=== PATIENT | male | born 1970 | race Native Hawaiian/Other Pacific Islander ===

== ENCOUNTER 2020-07-12 12:08 | Observation (INO) | payer OTHER ==
[~2020-07-12] VITALS: Ht 180.3 cm; Wt 99.4 kg
[2020-07-12 12:13] VITALS: BP 156/92; TEMP 97.9
[2020-07-12 12:30] VITALS: BP 159/94
[2020-07-12 12:49] LABS: PLATELET COUNT 227 K/uL (142-355)
[2020-07-12 12:56] LABS: POTASSIUM 3.7 mmol/L (3.6-5.2); SODIUM 135 mmol/L (136-145)
[2020-07-12 13:00] VITALS: BP 131/86
[2020-07-12 13:30] VITALS: BP 132/77
[2020-07-12 15:50] VITALS: BP 132/85; TEMP 97.7; Ht 180.3 cm; Wt 99.4 kg
[2020-07-12 20:00] VITALS: BP 123/71; TEMP 98.4
[2020-07-13] VITALS: BP 132/70; TEMP 98
[2020-07-13 04:04] VITALS: BP 117/72; TEMP 97.6
[2020-07-13 05:40] LABS: PLATELET COUNT 218 K/uL (142-355)
[2020-07-13 06:19] LABS: POTASSIUM 4.2 mmol/L (3.6-5.2)
[2020-07-13 08:00] VITALS: BP 133/79; TEMP 97
[2020-07-13] MEDS ORDERED: LEVOFLOXACIN750 MG PO (11:44)
--- NOTE | 2020-07-13 12:11 | NUR ---
IV DC TIP INTACT. PT GIVEN RX FOR LEVAQUIN 750 MG DAILY X 7 DAYS. PT GIVEN GOOD RX COUPON. PT INSTRUCTED TO F/U WITH ADAMARIS HART ON 07/24/20 AT 0830. PT INSTRUCTED TO TAKE ALL ANTIBIOTICS PRESCIBED. PT VERBALIZES UNDERSTANDING. PT INSTRUCTED TO REPORT S/S OF DIZZINESS, SOB, NAUSEA, VOMITTING, DIARRHEA. PT VERBALIZES UNDERSTANDING. PT DC VIA WC
== END 2020-07-13 12:20 | disposition home or self-care (01) ==
LOC: ED 12:08 → MED/SURG 13:50
PROVIDERS: Internal Medicine Endocrinology, Diabetes & Metabolism
DX: J18.8 Other pneumonia, unspecified organism (principal); R07.89 Other chest pain
CPT/HCPCS: 36415; 36600; 80048; 80053; 80061; 82805; 83605; 83880; 84484; 85027; 87040; 87635; 93005; 94760; 96365; 96366; 96367; 96374; 99220; 99284; G0378; J0456; J0696; J1650; J2930; U0003

== ENCOUNTER 2022-10-07 10:16 | Outpatient (CLI) | payer OTHER ==
[~2022-10-07 10:16] MED LIST: LEVOFLOXACIN750 MG PO
[2022-10-07 10:47] LABS: POTASSIUM 4.3 mmol/L (3.6-5.2)
[2022-10-07 10:58] LABS: PLATELET COUNT 237 K/uL (142-355)
== END 2022-10-07 20:12 | disposition home or self-care (01) ==
LOC: LABW 10:16
PROVIDERS: ATTEND Nurse Practitioner Family
DX: I10 Essential (primary) hypertension (principal)
CPT/HCPCS: 36415; 80053; 82550; 82553; 84484; 85027; 93005